=== PATIENT | male | born 1985 | race Caucasian/White ===

== ENCOUNTER 2016-10-24 16:42 | Emergency (ER) | payer SELFPAY ==
[2016-10-24] MEDS ORDERED: ONDANSETRON 4 MG TAB.RAPDIS PO ONE (17:09)
--- NOTE | 2016-10-24 17:09 | ER Document Report ---
ED Medical Screen (RME) - General Chief Complaint: Nausea/Vomiting/Diarrhea Stated Complaint: VOMITING,DIARRHEA,NAUSEA Time seen by provider: 17:07 Mode of Arrival: Ambulatory Information source: Patient Notes: 30-year-old male presents to ED for nausea vomiting and diarrhea since yesterday. Vomited every 10-15 minutes for one hour today 1 diarrhea stool today. States he is able to keep water down. TRAVEL OUTSIDE OF THE [place] IN LAST 30 DAYS: No - Related Data Allergies/Adverse Reactions: No Known Allergies Allergy (Unverified 07/10/15 11:09) Past Medical History Psychiatric Medical History: Reports: Hx Attention Deficit Hyperactivity Disorder, Hx Post Traumatic Stress Disorder - Immunizations Immunizations up to date: Yes Physical Exam - Vital signs Vitals: Temp Pulse Resp BP Pulse Ox 98.1 F 88 16 117/56 L 97 10/24/16 17:00 10/24/16 17:00 10/24/16 17:00 10/24/16 17:00 10/24/16 17:00 Course - Vital Signs Vital signs: Temp Pulse Resp BP Pulse Ox 98.1 F 88 16 117/56 L 97 10/24/16 17:00 10/24/16 17:00 10/24/16 17:00 10/24/16 17:00 10/24/16 17:00
[2016-10-24 19:23] LABS: APPEARANCE,URINE SLIGHTLY-CLOUDY; BILIRUBIN,URINE NEGATIVE (NEGATIVE); GLUCOSE, URINE NEGATIVE (NEGATIVE); KETONES,URINE TRACE mg/dL (NEGATIVE); LEUKOCYTE ESTERASE,URINE NEGATIVE (NEGATIVE); NITRITE,URINE NEGATIVE (NEGATIVE); PROTEIN,URINE NEGATIVE (NEGATIVE); URINE SPECIFIC GRAVITY 1.021; UROBILINOGEN,URINE NEGATIVE mg/dL (<2.0)
[2016-10-24] MEDS ORDERED: ONDANSETRON ODT 4 MG TAB (6 TAB/DSPK) PO PRN (19:40)
--- NOTE | 2016-10-24 19:41 | ER Document Report ---
ED GI/ - General Chief Complaint: Nausea/Vomiting/Diarrhea Stated Complaint: VOMITING,DIARRHEA,NAUSEA Mode of Arrival: Ambulatory TRAVEL OUTSIDE OF THE [place] IN LAST 30 DAYS: No - Related Data Allergies/Adverse Reactions: No Known Allergies Allergy (Verified 10/24/16 17:09) Past Medical History - General Information source: Patient - Social History Smoking Status: Current Every Day Smoker Chew tobacco use (# tins/day): No Frequency of alcohol use: Social Drug Abuse: Marijuana Family History: Reviewed & Not Pertinent Patient has suicidal ideation: No Patient has homicidal ideation: No Renal/ Medical History: Denies: Hx Peritoneal Dialysis Psychiatric Medical History: Reports: Hx Attention Deficit Hyperactivity Disorder, Hx Post Traumatic Stress Disorder - Immunizations Immunizations up to date: Yes Physical Exam - Vital signs Vitals: Temp Pulse Resp BP Pulse Ox 98.1 F 88 16 117/56 L 97 10/24/16 17:00 10/24/16 17:00 10/24/16 17:00 10/24/16 17:00 10/24/16 17:00 Course - Vital Signs Vital signs: Temp Pulse Resp BP Pulse Ox 98.1 F 88 16 117/56 L 97 10/24/16 17:00 10/24/16 17:00 10/24/16 17:00 10/24/16 17:00 10/24/16 17:00 - Laboratory Laboratory results interpreted by me: 10/24/16 17:15 Urine Ketones TRACE H Discharge - Discharge Clinical Impression: Vomiting, Diarrhea Condition: Stable Disposition: HOME, SELF-CARE Instructions: Vomiting ([facility]), Diarrhea, Nonspecific ([facility]) Prescriptions: Ondansetron [Zofran Odt 4 mg Tablet] 1 - 2 tab PO Q4H PRN #15 tab.rapdis PRN Reason: For Nausea/Vomiting Forms: Return to Work
--- NOTE | 2016-10-24 19:41 | ER Document Report ---
ED GI/ - General Mode of Arrival: Ambulatory Information source: Patient TRAVEL OUTSIDE OF THE [place] IN LAST 30 DAYS: No - HPI Patient complains to provider of: Diarrhea, Vomiting Onset: Other - 2 days ago Associated symptoms: Other - see above - General Chief Complaint: Nausea/Vomiting/Diarrhea Stated Complaint: VOMITING,DIARRHEA,NAUSEA Notes: 30 year old male presents to the ED complaining of vomiting and diarrhea that started 2 days ago. Patient states that he had an episode of vomiting and 2-3 episodes of diarrhea this morning, but nothing since then. Patient explains that his vomiting begins with a "pit" in the stomach sensation that builds up and develops as a cough, dry heaving, and finally vomiting. Patient states that he has been able to keep food and water down. Patient additionally states that he was at a friends house for dinner 2 days ago when symptoms began and explains that everyone at dinner has been experiencing similar symptoms. (BLANCA HERNANDEZ) - Related Data Allergies/Adverse Reactions: No Known Allergies Allergy (Verified 10/24/16 17:09) Past Medical History - General Information source: Patient - Social History Smoking Status: Current Every Day Smoker Chew tobacco use (# tins/day): No Frequency of alcohol use: Social Drug Abuse: Marijuana Family History: Reviewed & Not Pertinent Patient has suicidal ideation: No Patient has homicidal ideation: No Psychiatric Medical History: Reports: Hx Attention Deficit Hyperactivity Disorder, Hx Post Traumatic Stress Disorder - Immunizations Immunizations up to date: Yes Review of Systems - Review of Systems Constitutional: No symptoms reported EENT: No symptoms reported Cardiovascular: No symptoms reported Respiratory: See HPI, Cough Gastrointestinal: See HPI, Diarrhea, Vomiting Genitourinary: No symptoms reported Male Genitourinary: No symptoms reported Musculoskeletal: No symptoms reported Skin: No symptoms reported Hematologic/Lymphatic: No symptoms reported Neurological/Psychological: No symptoms reported -: Yes All other systems reviewed and negative Physical Exam - Vital signs Interpretation: Normal - General General appearance: Alert In distress: None - HEENT Head: Normocephalic, Atraumatic Eyes: Normal Extraocular movements intact: Yes Pupils: PERRL - Respiratory Respiratory status: No respiratory distress Breath sounds: Normal - Cardiovascular Rhythm: Regular Heart sounds: Normal auscultation - Abdominal Inspection: Normal Distension: No distension Tenderness: Nontender - Back Back: Normal - Extremities General upper extremity: Normal inspection, Normal ROM General lower extremity: Normal inspection, Normal ROM - Neurological Neuro grossly intact: Yes Cognition: Normal Orientation: AAOx4 Favio Coma Scale Eye Opening: Spontaneous Favio Coma Scale Verbal: Oriented Favio Coma Scale Motor: Obeys Commands Favio Coma Scale Total: 15 Speech: Normal - Psychological Associated symptoms: Normal affect, Normal mood - Skin Skin Temperature: Warm Skin Moisture: Dry Skin Color: Normal - Vital signs Vitals: Temp Pulse Resp BP Pulse Ox 98.1 F 88 16 117/56 L 97 10/24/16 17:00 10/24/16 17:00 10/24/16 17:00 10/24/16 17:00 10/24/16 17:00 (BLANCA HERNANDEZ) (VANDANA REESE) Course - Re-evaluation Re-evalutation: 10/24/16 Patient with vomiting and diarrhea. No abdominal pain or tenderness. Patient is taking by mouth. He appears well. Patient will be discharged home with Zofran as needed. He is to take Imodium for further diarrhea but he has not had any since this morning. Stable for discharge home. Return if any worsening or concerning symptoms. Understands and agrees with plan. (VANDANA REESE) - Vital Signs Vital signs: Temp Pulse Resp BP Pulse Ox 98.3 F 67 12 123/67 96 10/24/16 19:54 10/24/16 19:54 10/24/16 19:54 10/24/16 19:54 10/24/16 19:54 (BLANCA HERNANDEZ) (VANDANA REESE) - Laboratory Laboratory results interpreted by me: 10/24/16 17:15 Urine Ketones TRACE H (BLANCA HERNANDEZ) (VANDANA REESE) Discharge - Discharge Clinical Impression: Vomiting Qualifiers: Vomiting type: unspecified Vomiting Intractability: non-intractable Nausea presence: with nausea Qualified Code(s): R11.2 - Nausea with vomiting, unspecified Diarrhea Qualifiers: Diarrhea type: unspecified type Qualified Code(s): R19.7 - Diarrhea, unspecified Condition: Stable Disposition: HOME, SELF-CARE Instructions: Diarrhea, Nonspecific ([facility]), Vomiting ([facility]) Prescriptions: Ondansetron [Zofran Odt 4 mg Tablet] 1 - 2 tab PO Q4H PRN #15 tab.rapdis PRN Reason: For Nausea/Vomiting Forms: Return to Work Scribe Attestation: 10/24/16 21:45 I personally performed the services described in the documentation, reviewed and edited the documentation which was dictated to the scribe in my presence, and it accurately records my words and actions. (VANDANA REESE) Scribe Documentation - Scribe Written by Scribe:: Maria Teresa Leo, 10/24/2016 20:39 acting as scribe for :: Rosa
[2016-10-24 20:14] VITALS: BP 123/67
== END 2016-10-24 20:00 | disposition home or self-care (01) ==
LOC: ER 16:42
DX: R11.2 Nausea with vomiting, unspecified (principal); R19.7 Diarrhea, unspecified; R05 Cough; F17.210 Nicotine dependence, cigarettes, uncomplicated
CPT/HCPCS: 99284; 81001; S0119

== ENCOUNTER 2018-05-11 13:07 | Emergency (ER) | payer SELFPAY ==
[2018-05-11 13:31] VITALS: BP 129/88
[2018-05-11] MEDS ORDERED: KETOROLAC TROMETHAMINE INJ/PF 30 MG/1 ML SDV IM ONE (13:31)
[2018-05-11] MEDS ORDERED: PENICILLIN V POTASSIUM 500 MG TABLET PO ONE (13:31)
[2018-05-11] MEDS ORDERED: LIDOCAINE 2% VISCOUS SOLN 20 ML UDCUP PO ONE (13:31)
--- NOTE | 2018-05-11 13:35 | ER Document Report ---
ED Oral Problem - General Chief Complaint: Toothache Stated Complaint: TOOTH PAIN Time Seen by Provider: 05/11/18 13:16 Mode of Arrival: Ambulatory Information source: Patient Notes: 32-year-old male presents to ED for complaint of dental pain to teeth #2 and 3 and 17. It was painful 3 is supposed to have been pulled previously but you can see white either roots or bone tooth #2 is deformed and tooth #17 is broken. There is redness around where tooth #3 belongs. Patient is alert and oriented respirations regular and unlabored speaking in full sentences walks with a even steady gait. 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 IN LAST 30 DAYS: No - HPI Patient complains to provider of: Toothache Onset: Other Onset: Gradual Quality of pain: Sharp, Throbbing Severity: Severe Pain Level: 5 Context: Other - Dental pain Associated symptoms: Toothache Worsened by: Nothing Relieved by: Nothing Similar symptoms previously: Yes Recently seen / treated by doctor/dentist: No - Related Data Allergies/Adverse Reactions: No Known Allergies Allergy (Verified 05/11/18 13:08) Past Medical History - General Information source: Patient - Social History Smoking Status: Current Every Day Smoker Cigarette use (# per day): Yes - Pack per day Chew tobacco use (# tins/day): No Smoking Education Provided: Yes - 4 minutes Frequency of alcohol use: None Drug Abuse: Marijuana Occupation: well logging [employer] Lives with: Spouse/Significant other Family History: Reviewed & Not Pertinent Patient has suicidal ideation: No Patient has homicidal ideation: No - Past Medical History Cardiac Medical History: Reports: None Pulmonary Medical History: Reports: None EENT Medical History: Reports: None Neurological Medical History: Reports: None Endocrine Medical History: Reports: None Renal/ Medical History: Reports: None Malignancy Medical History: Reports None GI Medical History: Reports: None Musculoskeletal Medical History: Reports Hx Musculoskeletal Trauma Skin Medical History: Reports None Psychiatric Medical History: Reports: Hx Attention Deficit Hyperactivity Disorder, Hx Post Traumatic Stress Disorder Traumatic Medical History: Reports: Hx Fractures - Wrist Infectious Medical History: Reports: None Past Surgical History: Reports: Hx Oral Surgery - Dental - Immunizations Immunizations up to date: Yes Hx Diphtheria, Pertussis, Tetanus Vaccination: Yes Review of Systems - Review of Systems Constitutional: No symptoms reported EENT: Mouth pain, Dental problem Cardiovascular: No symptoms reported Respiratory: No symptoms reported Gastrointestinal: No symptoms reported Genitourinary: No symptoms reported Male Genitourinary: No symptoms reported Musculoskeletal: No symptoms reported Skin: No symptoms reported Hematologic/Lymphatic: No symptoms reported Neurological/Psychological: No symptoms reported Physical Exam - Vital signs Vitals: Temp Pulse Resp BP Pulse Ox 98.0 F 73 16 129/88 H 100 05/11/18 13:11 05/11/18 13:11 05/11/18 13:11 05/11/18 13:11 05/11/18 13:11 Interpretation: Normal - General General appearance: Appears well, Alert - HEENT Head: Normocephalic, Atraumatic Eyes: Normal Pupils: PERRL Ears: Normal External canal: Normal Tympanic membrane: Normal Sinus: Normal Nasal: Normal Mouth/Lips: Caries Mucous membranes: Normal Teeth diagram: 1 - Tooth #2 3 and 17 - Respiratory Respiratory status: No respiratory distress Chest status: Nontender Breath sounds: Normal Chest palpation: Normal - Cardiovascular Rhythm: Regular Heart sounds: Normal auscultation Murmur: No - Abdominal Inspection: Normal Distension: No distension Bowel sounds: Normal Tenderness: Nontender Organomegaly: No organomegaly - Back Back: Normal, Nontender - Extremities General upper extremity: Normal inspection, Nontender, Normal color, Normal ROM , Normal temperature General lower extremity: Normal inspection, Nontender, Normal color, Normal ROM , Normal temperature, Normal weight bearing. No: Chastity's sign - Neurological Neuro grossly intact: Yes Cognition: Normal Orientation: AAOx4 [place] Coma Scale Eye Opening: Spontaneous Favio Coma Scale Verbal: Oriented Favio Coma Scale Motor: Obeys Commands [place] Coma Scale Total: 15 Speech: Normal Motor strength normal: LUE, RUE, LLE, RLE Sensory: Normal - Psychological Associated symptoms: Normal affect, Normal mood - Skin Skin Temperature: Warm Skin Moisture: Dry Skin Color: Normal Course - Re-evaluation Re-evalutation: 05/11/18 14:51 Presentation is most consistent with likely an infected tooth. Airway is patent. Vitals within normal limits. Patient is able swallow without any difficulty. There is no significant facial swelling. No evidence of Philip angina, apical abscess, or airway obstruction. Patient will be started on antibiotics. I've instructed to follow-up with dentistry as earliest ability for definitive management. At this time will discharge with return precautions and follow-up recommendations. Verbal discharge instructions given a the bedside and opportunity for questions given. Medication warnings reviewed. Patient is in agreement with this plan and has verbalized understanding of return precautions and the need for primary care follow-up in the next 24-72 hours. - Vital Signs Vital signs: Temp Pulse Resp BP Pulse Ox 98.0 F 73 16 129/88 H 100 05/11/18 13:11 05/11/18 13:11 05/11/18 13:11 05/11/18 13:11 05/11/18 13:11 Discharge - Discharge Clinical Impression: Pain due to dental caries Condition: Stable Disposition: HOME, SELF-CARE Additional Instructions: TOOTHACHE: Your pain is due to dental decay. The tooth must be repaired in order for you to feel better. You will, therefore, be referred to a dentist. We do not have dentists on the staff at [facility]. Severe swelling or drainage around a tooth usually means a dental abscess. This also requires evaluation and treatment by the dentist, but antibiotics may be prescribed while awaiting dental treatment. You should be rechecked immediately if you develop major swelling of the face, increasing pain, a lump in the jaw or gums, headache, difficulty swallowing, or fever. ORAL NARCOTIC MEDICATION: You have been given a prescription for pain control. This medication is a narcotic. It's best taken with food, as nausea can result if taken on an empty stomach. Don't operate machinery or drive within six hours of taking this medication. Do not combine this medicine with alcohol, or with any medication which can cause sedation (such as cold tablets or sleeping pills) unless you get permission from the physician. Narcotics tend to cause constipation. If possible, drink plenty of fluids and eat a diet high in fiber and fruits. Please be aware that prescription narcotics also have the potential for abuse. People become addicted to these medications because of the general sense of wellbeing that they induce. This feeling along with a significant reduction in tension, anxiety, and aggression provides a stimulating seductive quality to these drugs. Once your pain is under control, we encourage you to discard your unused narcotics. PENICILLIN V K: You have been given a prescription for Penicillin VK. Your physician has determined that this is the best antibiotic for your condition. Pen VK can be taken with meals, however more of the antibiotic gets into the bloodstream if it's taken on an empty stomach. Penicillin usually has no side effects. However, allergy to penicillins is common. If you have had an allergic reaction to any drug of the penicillin family, you should never take any other penicillin. Notify your doctor at once if you develop hives, itching, swelling, faintness, or shortness of breath. Salt and soda solution 1 quart of water 1 tablespoon of salt 1 teaspoon of baking soda Mixed 3 ingredients together and boil for 1 minute Placed in a covered quart jar Use 1/2 ounce of cold solution to gargle 3 times a day FOLLOW-UP CARE: You have been referred for follow-up care to the dentists listed below. Call the dentists office for an appointment as you were instructed or within the next two days. If you experience worsening or a significant change in your symptoms, notify the physician immediately or return to the Emergency Department at any time for re-evaluation. [facility] [address] [place], [place] [facility] [address] [place] [address] [facility] [address] [facility] [address] [facility], [facility] [address] [email or web address] [address] [place] [address] Sunday- 8:00am to 5:00 pm Will see patients from other [facility]. Charges based on income and family size and accepts Medicare, Medicaid, and Insurances Will pull molars [facility] [place] [address] Hours of Operation 8:00 am - 4:30 pm weekdays The following dental offices accept Medicaid: [facility] Dr. Mahan Dr. Scott Dr. Wilcox Dr. Madden Keon Ruht, Ileana, and Kuldip oral surgery Dr. Doran ([place]) Dr. Friedamn ([place]) [facility] Drs. Desai and Álvaro ([place]) Dr. Barrientos ([place]) [facility] Dr. Keene ([place]) Drs. Omer and ([place]) Medicaid Care Line Prescriptions: Hydrocodone/Acetaminophen [Rupert 5-325 mg Tablet] 1 tab PO BIDP PRN #4 tablet PRN Reason: Hydroxyzine Pamoate [Vistaril 50 mg Capsule] 50 - 100 mg PO HSP PRN #14 capsule PRN Reason: Forms: Elevated Blood Pressure, Smoking Cessation Education, Return to Work Referrals: DENTISTRY [Provider Group] - Follow up as needed
== END 2018-05-11 14:10 | disposition home or self-care (01) ==
LOC: ER 13:07
DX: K02.9 Dental caries, unspecified (principal); K08.89 Other specified disorders of teeth and supporting structures; F17.210 Nicotine dependence, cigarettes, uncomplicated; Z71.6 Tobacco abuse counseling
CPT/HCPCS: 99406; 99283; 96372; J3490; J1885

== ENCOUNTER 2019-05-14 12:09 | Emergency (ER) | payer SELFPAY ==
[2019-05-14 12:14] VITALS: BP 114/64
[2019-05-14] MEDS ORDERED: CLINDAMYCIN HCL 150 MG CAPSULE PO ONE (13:02)
--- NOTE | 2019-05-14 13:06 | ER Document Report ---
HPI - HPI Time Seen by Provider: 05/14/19 12:34 Pain Level: 5 Context: Patient is a 33-year-old male who presents to the emergency department with a chief complaint of right facial swelling. Patient states that he has been dealing with this for about 4 to 5 days. Patient states he did have a tooth removed from the right upper mouth about 8 months ago. Patient states he has had no issues since then. Patient states he is having discomfort to the right upper gum area. Patient states he did take some old penicillin for the past 24 hours without relief. Patient states he is also used an antibiotic that his took for a UTI, ice packs and Orajel. Patient denies fever, difficulty swallowing, difficulty breathing or visual changes. Patient states that the facial swelling and facial discomfort is located to the right side of his cheek. - DERM Skin Color: Normal Past Medical History - Social History Smoking Status: Current Every Day Smoker Frequency of alcohol use: None Drug Abuse: Marijuana Family History: Reviewed & Not Pertinent Patient has suicidal ideation: No Patient has homicidal ideation: No - Past Medical History Cardiac Medical History: Reports: None Pulmonary Medical History: Reports: None EENT Medical History: Reports: None Neurological Medical History: Reports: None Endocrine Medical History: Reports: None Renal/ Medical History: Reports: None. Denies: Hx Peritoneal Dialysis Malignancy Medical History: Reports None GI Medical History: Reports: None Musculoskeletal Medical History: Reports Hx Musculoskeletal Trauma Skin Medical History: Reports None Psychiatric Medical History: Reports: Hx Attention Deficit Hyperactivity Disorder, Hx Post Traumatic Stress Disorder Traumatic Medical History: Reports: Hx Fractures - Wrist Infectious Medical History: Reports: None Past Surgical History: Reports: Hx Oral Surgery - Dental - Immunizations Immunizations up to date: Yes Hx Diphtheria, Pertussis, Tetanus Vaccination: Yes Vertical Provider Document - CONSTITUTIONAL Agree With Documented VS: Yes Exam Limitations: No Limitations General Appearance: No Apparent Distress - INFECTION CONTROL TRAVEL OUTSIDE OF THE [place] IN LAST 30 DAYS: No - HEENT HEENT: Atraumatic, Normocephalic Mouth Diagram: 1 - Missing tooth from extraction, + erythema and significant tenderness noted to the gumline. Notes: Patient has right mid facial edema, firm to touch, no palpable abscess inside or outside the mouth. Airway is patent, uvula midline, no tonsillar hypertrophy. - NECK Neck: Normal Inspection - RESPIRATORY Respiratory: Breath Sounds Normal, No Respiratory Distress - CARDIOVASCULAR Cardiovascular: Regular Rate, Regular Rhythm - GI/ABDOMEN Gastrointestinal: Abdomen Soft, Abdomen Non-Tender - NEURO Level of Consciousness: Awake, Alert, Appropriate - DERM Integumentary: Warm, Dry, No Rash Course - Re-evaluation Re-evalutation: 05/14/19 Patient reports that he had been on 4-5 doses of penicillin that he had leftover from his previous dental infection. Due to the facial swelling and significant tenderness around the gumline I will treat the patient for possible dental infection. There was no palpable abscess. Patient will be placed on clindamycin. We will give patient prescription for pain medication. Patient placed on strict return precautions to include worsening swelling of the face, difficulty breathing, difficulty swallowing, fever or any other concerning signs or symptoms. Patient is agreement with this plan and denies questions or concerns at this time. - Vital Signs Vital signs: Temp Pulse Resp BP Pulse Ox 98.2 F 81 18 114/64 96 05/14/19 12:14 05/14/19 12:14 05/14/19 12:14 05/14/19 12:14 05/14/19 12:14 Discharge - Discharge Clinical Impression: Dental infection, Facial swelling Condition: Stable Disposition: HOME, SELF-CARE Instructions: Clindamycin ([facility]), Oral Narcotic Medication ([facility]), Toothache ([facility]) Additional Instructions: Today you were seen in the emergency department for a dental infection. I am placing you on antibiotic called clindamycin. You have received your first dose in the emergency department. You will take clindamycin 450 mg 3 times a day for the next 10 days. Please seek medical attention if you have high fever, worsening pain or increasing swelling to the facial area, difficulty breathing or difficulty swallowing. Please keep your appointment with your dentist in 2 weeks for a follow-up reassessment. Dental Infection or Abscess You have an infection, perhaps an abscess (pus formation) of the gum around one of your teeth, which is probably decayed. If there is an abscess, it may drain on its own or it may need to be opened or lanced. Severe swelling or drainage around a tooth usually means a deep dental abscess which usually requires evaluation and treatment by a dentist or oral surgeon. Antibiotics may be prescribed while awaiting dental treatment. If you develop high fever with chills, worsening pain, or increasing swelling in the area, see a dentist or oral surgeon immediately or return to the Emergency Department immediately. Prescriptions: Clindamycin HCl [Cleocin 150 mg Capsule] 450 mg PO TID 10 Days #90 capsule Oxycodone HCl/Acetaminophen [Percocet 5-325 mg Tablet] 1 tab PO Q4H PRN #15 tablet PRN Reason:
== END 2019-05-14 13:14 | disposition home or self-care (01) ==
LOC: ER 12:09
DX: K04.7 Periapical abscess without sinus (principal); R22.0 Localized swelling, mass and lump, head; F17.200 Nicotine dependence, unspecified, uncomplicated
CPT/HCPCS: 99282